=== PATIENT | male | born 1950 | race African-American/Black ===

== ENCOUNTER 2024-08-07 12:40 | Inpatient (IN) | payer OTHER ==
[2024-08-07 14:19] LABS: HEMATOCRIT 29.4 % (35.4-49); HEMOGLOBIN 9.4 GM/dL (11.7-16.9); MCH 26.3 pg (25.7-33.7); MEAN CELL VOLUME 82.3 fl (80-96); MEAN PLT VOLUME 8.5 fl (7.5-11.1); PLATELET COUNT 158 10^3/uL (134-434); RBC 3.57 M/mm3 (4.00-5.60); RDW 14.7 % (11.9-15.9); WHITE BLOOD COUNT 13.9 K/mm3 (4.0-10.0)
[2024-08-07] MEDS: SODIUM CHLORIDE 1,000 ML IV STA (14:42)
[2024-08-07 14:45] LABS: POTASSIUM 4.4 mmol/L (3.5-5.1)
[2024-08-07 14:47] LABS: BLOOD UREA NITROGEN 37.5 mg/dL (7-18); CALCIUM 9.4 mg/dL (8.5-10.1)
[2024-08-07 14:48] LABS: ALBUMIN 2.3 g/dl (3.4-5.0); MAGNESIUM 2.3 mg/dL (1.8-2.4)
[2024-08-07 14:51] LABS: PHOSPHOROUS 3.5 mg/dL (2.5-4.9)
[2024-08-07 14:52] LABS: BILIRUBIN,TOTAL 1.5 mg/dL (0.2-1); TOT PROT 6.2 g/dl (6.4-8.2)
[2024-08-07 21:13] VITALS: BMI 21.9
[2024-08-07 23:51] LABS: BILIRUBIN,DIRECT 0.9 mg/dL (0.0-0.2)
[2024-08-08] MEDS ORDERED: PATIENT'S OWN MEDICATION (NON-FORMULARY) (Diclofenac Sodium 0.01 MG/MG Gel) TP PRN (02:32)
[2024-08-08] MEDS ORDERED: ACETAMINOPHEN 325 MG TABLET (FP) PO PRN (02:32)
[2024-08-08 04:42] LABS: HEMATOCRIT 29.3 % (35.4-49); HEMOGLOBIN 9.7 GM/dL (11.7-16.9); MCH 26.7 pg (25.7-33.7); MEAN CELL VOLUME 80.9 fl (80-96); MEAN PLT VOLUME 8.4 fl (7.5-11.1); PLATELET COUNT 143 10^3/uL (134-434); RBC 3.62 M/mm3 (4.00-5.60); RDW 14.6 % (11.9-15.9); WHITE BLOOD COUNT 13.1 K/mm3 (4.0-10.0)
[2024-08-08] MEDS: HEPARIN NA (PORCINE) 5,000 UNITS/ML 1ML VIAL SQ SCH (06:40)
[2024-08-08] MEDS: PANTOPRAZOLE 40 MG TABLET PO SCH (06:40)
[2024-08-08] MEDS: SODIUM CHLORIDE 1,000 ML IV SCH (06:48)
[2024-08-08] MEDS ORDERED: CLOZAPINE 25 MG PO SCH (07:00)
[2024-08-08 07:22] LABS: RETICULOCYTES 0.95 % (0.5-1.5)
[2024-08-08 09:44] LABS: HEMOGLOBIN 9.5 GM/dL (11.7-16.9); MCH 26.5 pg (25.7-33.7); MCHC 32.7 g/dl (32.0-35.9); MEAN CELL VOLUME 81.1 fl (80-96); MEAN PLT VOLUME 8.9 fl (7.5-11.1); PLATELET COUNT 139 10^3/uL (134-434); RBC 3.57 M/mm3 (4.00-5.60); RDW 14.9 % (11.9-15.9); WHITE BLOOD COUNT 12.4 K/mm3 (4.0-10.0)
[2024-08-08 09:51] LABS: CALCIUM 9.2 mg/dL (8.5-10.1)
[2024-08-08 09:52] LABS: ALBUMIN 2.1 g/dl (3.4-5.0)
[2024-08-08 09:55] LABS: PHOSPHOROUS 2.7 mg/dL (2.5-4.9)
[2024-08-08 09:56] LABS: URIC ACID 8.2 mg/dL (2.6-7.2)
[2024-08-08 09:57] LABS: BILIRUBIN,TOTAL 1.8 mg/dL (0.2-1); CREATININE 1.6 mg/dL (0.55-1.3)
[2024-08-08 09:58] LABS: TOT PROT 5.9 g/dl (6.4-8.2)
[2024-08-08] MEDS: CHOLECALCIFEROL (VIT D3) 1,000 UNIT (25 MCG) TABLET PO SCH (09:58)
[2024-08-08] MEDS: cloZAPine 25 MG TABLET PO SCH (09:58)
[2024-08-08] MEDS: BUDESONIDE/FORMETEROL FUMARATE 160/4.5 mcg INHALER IH SCH (09:58)
[2024-08-08] MEDS: SOLIFENACIN SUCCINATE 5 MG TAB PO SCH (09:58)
[2024-08-08] MEDS: FAMOTIDINE 20 MG TABLET PO SCH (09:58)
[2024-08-08] MEDS: DOCUSATE SODIUM 100 MG CAPSULE (FP) PO SCH (09:58)
[2024-08-08] MEDS ORDERED: amLODIPine BESYLATE 10 MG TABLET (FP) PO SCH (10:00)
[2024-08-08] MEDS: LACTATED RINGERS SOLUTION 1,000 ML/1,000 ML INFUS.BAG IV STA (10:16)
[2024-08-08] MEDS: IRON SUCROSE INJECTION 200 MG in SODIUM CHLORIDE 100 ML IVPB ONE (12:29)
[2024-08-08 12:38] LABS: EPI CELLS 2 /uL (0-25.1); HYALINE CASTS 0 /uL (0-3.1); PH,URINE 6.5 (5.0-8.0); URINE APPEARANCE CLOUDY; URINE BACTERIA 8202 /uL (0-1359); URINE BILIRUBIN 1+ (NEGATIVE); URINE COLOR DK YELLOW; URINE GLUCOSE (UA) NEGATIVE (NEGATIVE); URINE KETONE NEGATIVE (NEGATIVE); URINE LEUK ESTERASE 2+ (NEGATIVE); URINE NITRITE NEGATIVE (NEGATIVE); URINE PROTEIN 1+ (NEGATIVE); URINE RBC 14 /uL (0-23.9); URINE UROBILINOGEN >=8.0 E.U./dl mg/dL (0.2-1.0); URINE WBC 191 /uL (0-25.8)
[2024-08-08] MEDS: FERROUS GLUCONATE 324 MG TAB (FP) PO SCH (15:52)
[2024-08-08 16:23] LABS: CALCIUM 9.1 mg/dL (8.5-10.1)
[2024-08-08 16:27] LABS: CREATININE 1.5 mg/dL (0.55-1.3)
[2024-08-08] MEDS: CLOZAPINE PO SCH (21:44)
[2024-08-08] MEDS: SENNOSIDES 8.6MG TABLET (FP) PO SCH (21:44)
[2024-08-08] MEDS: LACTATED RINGERS SOLUTION 1,000 ML/1,000 ML INFUS.BAG IV SCH (21:46)
[2024-08-08] MEDS ORDERED: CLOZAPINE 200 MG PO SCH (22:00)
[2024-08-08] MEDS ORDERED: CLOZAPINE 50 MG PO SCH (22:00)
[2024-08-09] MEDS: CEFTRIAXONE 1 G/50 ML PREMIX 50 ML IVPB SCH (08:17)
[2024-08-09] MEDS: SODIUM CHLORIDE 1,000 ML IV SCH (08:17)
[2024-08-09 10:46] LABS: BASO % 0.1 % (0-2.0); EOS % 0.7 % (0-4.5); HEMOGLOBIN 9.9 GM/dL (11.7-16.9); LYMPH % 5.4 % (8-40); MCH 26.6 pg (25.7-33.7); MEAN CELL VOLUME 80.6 fl (80-96); MEAN PLT VOLUME 8.8 fl (7.5-11.1); MONO % 7.6 % (3.8-10.2); NEUT % 86.2 % (42.8-82.8); PLATELET COUNT 130 10^3/uL (134-434); RBC 3.73 M/mm3 (4.00-5.60); RDW 14.7 % (11.9-15.9); WHITE BLOOD COUNT 12.8 K/mm3 (4.0-10.0)
[2024-08-09 11:05] LABS: POTASSIUM 3.7 mmol/L (3.5-5.1)
[2024-08-09 11:08] LABS: CALCIUM 9.2 mg/dL (8.5-10.1)
[2024-08-09 11:09] LABS: BLOOD UREA NITROGEN 23.5 mg/dL (7-18); MAGNESIUM 1.9 mg/dL (1.8-2.4)
[2024-08-09 11:12] LABS: CREATININE 1.3 mg/dL (0.55-1.3); PHOSPHOROUS 2.8 mg/dL (2.5-4.9)
[2024-08-09 11:13] LABS: BILIRUBIN,TOTAL 1.9 mg/dL (0.2-1); TOT PROT 5.8 g/dl (6.4-8.2)
[2024-08-09 13:34] LABS: EPI CELLS 1 /uL (0-25.1); HYALINE CASTS 0 /uL (0-3.1); URINE APPEARANCE CLEAR; URINE BILIRUBIN 1+ (NEGATIVE); URINE COLOR DK YELLOW; URINE GLUCOSE (UA) NEGATIVE (NEGATIVE); URINE KETONE NEGATIVE (NEGATIVE); URINE LEUK ESTERASE 2+ (NEGATIVE); URINE NITRITE POSITIVE (NEGATIVE); URINE PROTEIN 1+ (NEGATIVE); URINE RBC 13 /uL (0-23.9); URINE UROBILINOGEN >=8.0 E.U./dl mg/dL (0.2-1.0); URINE WBC 201 /uL (0-25.8)
[2024-08-09 14:06] LABS: URINE BACTERIA 1274 /uL (0-1359)
[2024-08-10 08:34] VITALS: RESP 20
[2024-08-10 10:41] LABS: INR 1.51 (0.83-1.09); PROTHROMBIN TIME (PATIENT) 17.2 SEC (9.7-13.0)
[2024-08-10] MEDS: MIRTAZAPINE 15 MG TABLET (FP) PO SCH (11:15)
[2024-08-10 13:13] LABS: HEMATOCRIT 31.8 % (35.4-49); HEMOGLOBIN 10.4 GM/dL (11.7-16.9); MCH 26.7 pg (25.7-33.7); MCHC 32.8 g/dl (32.0-35.9); MEAN CELL VOLUME 81.5 fl (80-96); PLATELET COUNT 132 10^3/uL (134-434); WHITE BLOOD COUNT 14.4 K/mm3 (4.0-10.0)
[2024-08-10 13:42] LABS: POTASSIUM 3.8 mmol/L (3.5-5.1)
[2024-08-10 13:44] LABS: CALCIUM 9.3 mg/dL (8.5-10.1)
[2024-08-10 13:45] LABS: BLOOD UREA NITROGEN 22.6 mg/dL (7-18)
[2024-08-10 13:48] LABS: CREATININE 1.2 mg/dL (0.55-1.3)
[2024-08-10] MEDS: LACTATED RINGERS SOLUTION 1,000 ML/1,000 ML INFUS.BAG IV STA (14:24)
[2024-08-10] MEDS: ASCORBIC ACID 250 MG TABLET (FP) PO SCH (18:30)
[2024-08-11] MEDS: MULTIVITAMINS (DAILY MVI) TABLET (FP) PO SCH (09:56)
[2024-08-11] MEDS ORDERED: MULTIVITAMINS (DAILY MVI) TABLET (FP) PO SCH (19:00)
[2024-08-11 20:13] VITALS: BP 108/79; PULSE 112; TEMP 98.4
== END 2024-08-11 20:45 | disposition home or self-care (01) | DRG 682 ==
LOC: JER 12:40 → JERBED 17:33 → J6S 19:22 → OBSVTOIN 08-08 02:29
PROVIDERS: ADMIT Internal Medicine; ATTEND Internal Medicine
DX: N17.9 Acute kidney failure, unspecified (principal); E43 Unspecified severe protein-calorie malnutrition; N39.0 Urinary tract infection, site not specified; R64 Cachexia; D64.9 Anemia, unspecified; I12.9 Hypertensive chronic kidney disease with stage 1 through stage 4 chronic kidney disease, or unspecified chronic kidney disease; J45.909 Unspecified asthma, uncomplicated; F20.9 Schizophrenia, unspecified; N18.9 Chronic kidney disease, unspecified; E78.5 Hyperlipidemia, unspecified; D72.829 Elevated white blood cell count, unspecified; K21.9 Gastro-esophageal reflux disease without esophagitis; F17.210 Nicotine dependence, cigarettes, uncomplicated; Z68.21 Body mass index [BMI] 21.0-21.9, adult; D69.6 Thrombocytopenia, unspecified; R62.7 Adult failure to thrive; K59.00 Constipation, unspecified
CPT/HCPCS: 0241U-QW; 36415; 71045-TC-FY; 76775-TC; 80048; 80053; 81003; 82140; 82248; 82550; 82570; 82728; 82962; 83540; 83550; 83735; 83970; 84100; 84156; 84300; 84484; 84550; 85025; 85027; 85045; 85610; 87086; 87186; 93005; 93010; 99285-25; G0378; J1644; J1756

== ENCOUNTER 2024-08-13 10:27 | Inpatient (IN) | payer OTHER ==
[2024-08-13 10:53] VITALS: BMI 21.7
[2024-08-13 11:40] LABS: HEMATOCRIT 34.8 % (35.4-49); HEMOGLOBIN 10.8 GM/dL (11.7-16.9); INR 1.4 (0.83-1.09); MCH 25.8 pg (25.7-33.7); MCHC 31.1 g/dl (32.0-35.9); MEAN PLT VOLUME 9.6 fl (7.5-11.1); PLATELET COUNT 130 10^3/uL (134-434); PROTHROMBIN TIME (PATIENT) 15.7 SEC (9.7-13.0); RBC 4.19 M/mm3 (4.00-5.60); RDW 15.5 % (11.9-15.9); WHITE BLOOD COUNT 18.6 K/mm3 (4.0-10.0)
[2024-08-13 11:43] LABS: ACTIVATED PTT 21.6 SECONDS (25.2-36.5)
[2024-08-13 12:00] LABS: POTASSIUM 4.1 mmol/L (3.5-5.1)
[2024-08-13 12:02] LABS: CALCIUM 10.5 mg/dL (8.5-10.1)
[2024-08-13 12:04] LABS: ALBUMIN 2.2 g/dl (3.4-5.0); BLOOD UREA NITROGEN 33.1 mg/dL (7-18); MAGNESIUM 2.3 mg/dL (1.8-2.4)
[2024-08-13 12:07] LABS: CREATININE 1.5 mg/dL (0.55-1.3)
[2024-08-13 12:08] LABS: BILIRUBIN,TOTAL 1.8 mg/dL (0.2-1); TOT PROT 6.8 g/dl (6.4-8.2)
[2024-08-13 12:18] LABS: LACTIC ACID 2.8 mmol/L (0.4-2.0)
[2024-08-13 12:34] LABS: ANISOCYTOSIS 1+; MACROCYTOSIS 0; OVALOCYTE 1+
[2024-08-13] MEDS: SODIUM CHLORIDE 0.45% 1,000 ML IV SCH ×2 (13:17→19:38)
[2024-08-13 13:37] LABS: EPI CELLS 31 /uL (0-25.1); HYALINE CASTS 0 /uL (0-3.1); PH,URINE 5.5 (5.0-8.0); URINE APPEARANCE CLEAR; URINE BILIRUBIN 1+ (NEGATIVE); URINE COLOR DK YELLOW; URINE GLUCOSE (UA) NEGATIVE (NEGATIVE); URINE KETONE TRACE (NEGATIVE); URINE LEUK ESTERASE NEGATIVE (NEGATIVE); URINE NITRITE POSITIVE (NEGATIVE); URINE PROTEIN 1+ (NEGATIVE); URINE RBC 24 /uL (0-23.9); URINE WBC 8 /uL (0-25.8)
[2024-08-13 14:00] LABS: URINE BACTERIA 0.9 /uL (0-1359)
[2024-08-13] MEDS ORDERED: PATIENT'S OWN MEDICATION (NON-FORMULARY) (Diclofenac Sodium 0.01 MG/MG Gel) TP PRN (15:03)
[2024-08-13] MEDS: CEFTRIAXONE 1 G/50 ML PREMIX 50 ML IVPB SCH (16:25)
[2024-08-13] MEDS ORDERED: AMOX TR/POT CLAV 875MG/125MG TABLETS (FP) PO SCH (17:30)
[2024-08-13] MEDS ORDERED: LACTATED RINGERS SOLUTION 1000 ML INFUS.BAG IV ONE (17:58)
[2024-08-13] MEDS: LACTATED RINGERS SOLUTION 1,000 ML/1,000 ML INFUS.BAG IV SCH ×2 (18:05→21:59)
[2024-08-13] MEDS: cloZAPine 200 MG, cloZAPine 50 MG PO SCH (21:59)
[2024-08-13] MEDS: DOCUSATE SODIUM 100 MG CAPSULE (FP) PO SCH (21:59)
[2024-08-13] MEDS: MIRTAZAPINE 15 MG TABLET (FP) PO SCH (21:59)
[2024-08-13] MEDS: FAMOTIDINE 20 MG TABLET PO SCH (21:59)
[2024-08-13] MEDS ORDERED: CLOZAPINE 50 MG PO SCH (22:00)
[2024-08-13] MEDS ORDERED: HEPARIN NA (PORCINE) 5,000 UNITS/ML 1ML VIAL SQ SCH (22:00)
[2024-08-14 09:26] LABS: BASO % 0.1 % (0-2.0); EOS % 0.8 % (0-4.5); HEMATOCRIT 33.7 % (35.4-49); HEMOGLOBIN 10.9 GM/dL (11.7-16.9); LYMPH % 3.5 % (8-40); MCH 26.3 pg (25.7-33.7); MCHC 32.2 g/dl (32.0-35.9); MEAN CELL VOLUME 81.7 fl (80-96); MEAN PLT VOLUME 9.7 fl (7.5-11.1); MONO % 6.2 % (3.8-10.2); NEUT % 89.4 % (42.8-82.8); PLATELET COUNT 111 10^3/uL (134-434); RBC 4.13 M/mm3 (4.00-5.60); RDW 15.4 % (11.9-15.9); WHITE BLOOD COUNT 16.1 K/mm3 (4.0-10.0)
[2024-08-14 09:30] LABS: INR 1.41 (0.83-1.09); PROTHROMBIN TIME (PATIENT) 16.1 SEC (9.7-13.0)
[2024-08-14 09:32] LABS: ACTIVATED PTT 27.4 SECONDS (25.2-36.5)
[2024-08-14 09:44] LABS: POTASSIUM 3.5 mmol/L (3.5-5.1)
[2024-08-14 09:55] LABS: CALCIUM 10.2 mg/dL (8.5-10.1)
[2024-08-14 09:56] LABS: BLOOD UREA NITROGEN 28.6 mg/dL (7-18); MAGNESIUM 2.1 mg/dL (1.8-2.4)
[2024-08-14 09:57] LABS: BILIRUBIN,DIRECT 1.3 mg/dL (0.0-0.2)
[2024-08-14 09:59] LABS: BILIRUBIN,TOTAL 1.8 mg/dL (0.2-1); CREATININE 1.3 mg/dL (0.55-1.3); PHOSPHOROUS 2.2 mg/dL (2.5-4.9)
[2024-08-14] MEDS: PANTOPRAZOLE 40 MG TABLET PO SCH (15:49)
[2024-08-14] MEDS: cloZAPine 25 MG TABLET PO SCH (15:49)
[2024-08-14] MEDS: FERROUS GLUCONATE 324 MG TAB (FP) PO SCH (15:49)
[2024-08-14] MEDS: amLODIPine BESYLATE 10 MG TABLET (FP) PO SCH (15:49)
[2024-08-14] MEDS: SENNOSIDES 8.6MG TABLET (FP) PO SCH (15:49)
[2024-08-14] MEDS: BUDESONIDE/FORMETEROL FUMARATE 80/4.5 mcg INHALER IH SCH (15:49)
[2024-08-14] MEDS: SOLIFENACIN SUCCINATE 5 MG TAB PO SCH (15:50)
[2024-08-14] MEDS: CHOLECALCIFEROL (VIT D3) 1,000 UNIT (25 MCG) TABLET PO SCH (15:50)
[2024-08-14] MEDS: POTASSIUM PHOSPHATE 30 MM in DEXTROSE 5%-WATER - 500 ML IVPB ONE (20:40)
[2024-08-15] MEDS: LACTATED RINGERS SOLUTION 1,000 ML/1,000 ML INFUS.BAG IV ONE (04:43)
[2024-08-15 09:34] LABS: HEMATOCRIT 34.6 % (35.4-49); HEMOGLOBIN 11.4 GM/dL (11.7-16.9); MCH 26.7 pg (25.7-33.7); MCHC 32.8 g/dl (32.0-35.9); MEAN CELL VOLUME 81.2 fl (80-96); MEAN PLT VOLUME 9.3 fl (7.5-11.1); PLATELET COUNT 92 10^3/uL (134-434); RBC 4.26 M/mm3 (4.00-5.60); RDW 15.3 % (11.9-15.9); WHITE BLOOD COUNT 19.3 K/mm3 (4.0-10.0)
[2024-08-15 09:59] LABS: POTASSIUM 3.8 mmol/L (3.5-5.1)
[2024-08-15 10:03] LABS: MAGNESIUM 2.2 mg/dL (1.8-2.4)
[2024-08-15 10:06] LABS: CREATININE 1.2 mg/dL (0.55-1.3); PHOSPHOROUS 2.7 mg/dL (2.5-4.9)
[2024-08-15 10:07] LABS: TOT PROT 5.9 g/dl (6.4-8.2)
[2024-08-15 11:04] LABS: ANISOCYTOSIS 0; HELMET CELLS 0; HOWELL-JOLLY BODIES 0; MACROCYTOSIS 0; OVALOCYTE 0; ROULEAU 0; SICKELED CELLS 0; TARGET CELLS 0; TEAR DROP CELLS 0; TOXIC GRANULATION 0
[2024-08-15] MEDS ORDERED: SODIUM CHLORIDE 0.45% 1,000 ML IV SCH (12:00)
[2024-08-15] MEDS: DEXTROSE 5%-0.45% SALINE 1,000 ML IV SCH (17:31)
[2024-08-16 09:19] LABS: HEMATOCRIT 31.9 % (35.4-49); HEMOGLOBIN 10.3 GM/dL (11.7-16.9); MCH 26.4 pg (25.7-33.7); MCHC 32.2 g/dl (32.0-35.9); MEAN CELL VOLUME 82.1 fl (80-96); MEAN PLT VOLUME 9.3 fl (7.5-11.1); PLATELET COUNT 63 10^3/uL (134-434); RBC 3.88 M/mm3 (4.00-5.60); RDW 15.8 % (11.9-15.9); WHITE BLOOD COUNT 18.2 K/mm3 (4.0-10.0)
[2024-08-16 09:40] LABS: POTASSIUM 3.2 mmol/L (3.5-5.1)
[2024-08-16 09:46] LABS: CALCIUM 9.8 mg/dL (8.5-10.1)
[2024-08-16 09:47] LABS: ALBUMIN 1.8 g/dl (3.4-5.0); BLOOD UREA NITROGEN 28.8 mg/dL (7-18); MAGNESIUM 1.9 mg/dL (1.8-2.4)
[2024-08-16 09:50] LABS: CREATININE 1.2 mg/dL (0.55-1.3); PHOSPHOROUS 1.7 mg/dL (2.5-4.9)
[2024-08-16 09:51] LABS: BILIRUBIN,TOTAL 1.5 mg/dL (0.2-1)
[2024-08-16 09:52] LABS: TOT PROT 5.4 g/dl (6.4-8.2)
[2024-08-16 10:44] LABS: ANISOCYTOSIS 0; HELMET CELLS 0; HOWELL-JOLLY BODIES 0; MACROCYTOSIS 0; OVALOCYTE 0; ROULEAU 0; SICKELED CELLS 0; TARGET CELLS 0; TEAR DROP CELLS 0; TOXIC GRANULATION 0
[2024-08-16] MEDS: DEXTROSE 5%-0.45% SALINE 1,000 ML IV SCH (12:39)
[2024-08-16] MEDS ORDERED: KCL 10 MEQ IVPB 10 MEQ/100 ML INFUS.BAG IVPB SCH (15:00)
[2024-08-16] MEDS: POTASSIUM CHLORIDE TABS 10 MEQ TABLET.ER (FP) PO ONE (15:33)
[2024-08-16] MEDS: NAPH,MB-DB/K PH,MBDB POWDER PACKET PO ONE (15:41)
[2024-08-16] MEDS: POTASSIUM CHLORIDE ORAL LIQUID 20 MEQ/15 ML PO ONE ×2 (15:42→16:29)
[2024-08-16] MEDS: HEPARIN NA (PORCINE) 5,000 UNITS/ML 1ML VIAL SQ ONE (16:29)
[2024-08-16] MEDS: ONDANSETRON 4 MG/2 ML VIAL IVPUSH ONE (17:50)
[2024-08-17 14:00] VITALS: RESP 18
[2024-08-17] MEDS: MAG HYDROX/AL HYDROX/SIMETH 30 ML UNIT-DOSE CUP PO ONE (23:00)
[2024-08-17 23:26] VITALS: BP 87/54; PULSE 116; TEMP 98.1
== END 2024-08-18 01:19 | disposition expired | DRG 435 ==
LOC: JER 10:27 → JERBED 13:10 → OBSVTOIN 14:04 → J6S 15:43
PROVIDERS: ADMIT Student in an Organized Health Care Education/Training Program; ATTEND Internal Medicine
PROC: 5A1935Z Respiratory Ventilation, Less than 24 Consecutive Hours (ICD-10-PCS; principal; 2024-08-18)
PROC: 0BH17EZ Insertion of Endotracheal Airway into Trachea, Via Natural or Artificial Opening (ICD-10-PCS; 2024-08-18)
PROC: 5A12012 Performance of Cardiac Output, Single, Manual (ICD-10-PCS; 2024-08-18)
DX: C78.7 Secondary malignant neoplasm of liver and intrahepatic bile duct (principal); J96.90 Respiratory failure, unspecified, unspecified whether with hypoxia or hypercapnia; C25.2 Malignant neoplasm of tail of pancreas; E87.0 Hyperosmolality and hypernatremia; E87.20 Acidosis, unspecified; E46 Unspecified protein-calorie malnutrition; K81.0 Acute cholecystitis; R62.7 Adult failure to thrive; I10 Essential (primary) hypertension; J45.909 Unspecified asthma, uncomplicated; F20.9 Schizophrenia, unspecified; E86.0 Dehydration; E87.6 Hypokalemia; E83.39 Other disorders of phosphorus metabolism; D63.8 Anemia in other chronic diseases classified elsewhere; E80.6 Other disorders of bilirubin metabolism; Z68.21 Body mass index [BMI] 21.0-21.9, adult; E83.52 Hypercalcemia
CPT/HCPCS: 36415; 70450-TC; 71045-TC-FY; 74177-TC; 76705-TC; 80048; 80053; 80076; 81003; 83605; 83735; 83880; 84100; 84484; 85025; 85610; 85730; 87086; 87522; 93005; 93010; 97116-GP; 97162-GP; 99285-25; G0378; J1644; Q9967